=== PATIENT | male | born 1990 | race American Indian/Alaskan Native ===

== ENCOUNTER 2016-09-03 05:09 | Emergency (ER) | payer SELFPAY ==
[2016-09-03 05:59] VITALS: BP 151/96
--- NOTE | 2016-09-03 07:32 | Emergency Department Report ---
HPI - General Chief Complaint: Upper Respiratory Infection Time Seen by Provider: 09/03/16 07:13 - HPI HPI: Patient here reported that his cough and runny nose for the past 2 weeks that is getting worse over the last 3 days. He said he has a fever yesterday but none today he said he's been taking Loren-[place] which she took yesterday he reports that when he coughs it hurts. Denies any sore throat. Denies any nausea or vomiting. Denies any abdominal or back pain. Denies any shortness of breath or chest pain. ED Past Medical Hx - Past Medical History Previous Medical History?: Yes Hx Hypertension: Yes - Surgical History Past Surgical History?: No - Family History Family history: no significant - Social History Smoking Status: Never Smoker Substance Use Type: Alcohol - Medications Home Medications: Home Medications Medication Instructions Recorded Confirmed Last Taken Type Cyclobenzaprine [Flexeril] 10 mg PO TID PRN #30 tablet 01/13/16 Unknown Rx HYDROcodone/APAP 5-325 [[place] 1 each PO Q6HR PRN #15 tablet 01/13/16 Unknown Rx 5/325] Azithromycin [Zithromax Z-ARIANA] 250 mg PO DAILY #6 tab 09/03/16 Unknown Rx Brompheniramine/Pseudoephed/Dm 10 ml PO QHS PRN #50 ml 09/03/16 Unknown Rx [Bromfed Dm Cough Syrup] Fluticasone [Flonase] 1 spray NS QDAY #1 bottle 09/03/16 Unknown Rx Loratadine [Claritin] 10 mg PO DAILY #10 tablet 09/03/16 Unknown Rx predniSONE [Deltasone] 20 mg PO QDAY #5 tab 09/03/16 Unknown Rx ED Review of Systems ROS: Stated complaint: FLU LIKE SYMPTOMS Other details as noted in HPI Comment: All other systems reviewed and negative Constitutional: chills. denies: weakness ENT: congestion. denies: ear pain, throat pain Respiratory: cough. denies: shortness of breath, SOB with exertion, SOB at rest , stridor, wheezing Cardiovascular: denies: chest pain, palpitations, edema, syncope Gastrointestinal: denies: abdominal pain, nausea, vomiting Musculoskeletal: denies: back pain, arthralgia Skin: denies: rash Neurological: denies: headache Physical Exam - Physical Exam Vital Signs: Vital Signs 09/03/16 05:55 Temperature 98.9 F Pulse Rate 88 Respiratory 20 Rate Blood Pressure 151/96 O2 Sat by Pulse 98 Oximetry General: This is a 26-year-old male well-nourished well-developed in no acute distress Physical Exam: Head: Normocephalic atraumatic Mouth: Moist, no pharyngeal exudate or erythema. Uvula is midline and oral airway is patent. No gingival enlargement or dental tenderness. No facial swelling. No peritonsillar abscesses. Neck: Supple, no C-spine tenderness, no tracheal deviation. Nontender to palpate. no adenopathy Ears: Bilateral TMs congested withoUT erythema .bilateral EAC without any redness swelling or drainage Eyes: Bilateral pupils equal and reactive to light, bilateral EOM intact. Bilateral sclera and conjunctiva without injection. Normal accommodation Nose: Mucosa moist, positive congestion with erythema. Positive clear drainage. maxillary and frontal sinuses tender to palpate. Lungs:Clear to auscultate bilaterally no rhonchi wheezes or rales. Normal work of breathing extremity; No CCE. +2 pulses. No neurovascular compromise Cardiovascular: S1-S2, regular rate rhythm. No murmurs. Skin: clean Dry and intact no rash no lesions Psych: Normal mood and behavior ED Course Vital Signs 09/03/16 05:55 Temperature 98.9 F Pulse Rate 88 Respiratory 20 Rate Blood Pressure 151/96 O2 Sat by Pulse 98 Oximetry - Reevaluation(s) Reevaluation #1: 09/03/16 07:39 Patient stable throughout ED course ED Medical Decision Making - Medical Decision Making ED course: I discussed the patient that he has sinus infection and treatment plan. Patient was understanding of diagnosis and treatment plan. Patient discharged home with prescription for Z-Ariana, Flonase, prednisone and Bromfed. Patient in stable condition upon discharge. Critical care attestation.: If time is entered above; I have spent that time in minutes in the direct care of this critically ill patient, excluding procedure time. ED Disposition Clinical Impression: Cough Sinusitis, acute Qualifiers: Sinusitis location: unspecified location Recurrence: not specified as recurrent Qualified Code(s): J01.90 - Acute sinusitis, unspecified Disposition: DISCHARGED TO HOME OR SELFCARE Is pt being admited?: No Does the pt Need Aspirin: No Condition: Stable Instructions: Sinusitis (ED), Acute Cough (ED) Additional Instructions: Please rinse nostrils with saline nasal wash 2x/day Prescriptions: Brompheniramine/Pseudoephed/Dm [Bromfed Dm Cough Syrup] 10 ml PO QHS PRN #50 ml PRN Reason: Cough Azithromycin [Zithromax Z-ARIANA] 250 mg PO DAILY #6 tab Fluticasone [Flonase] 1 spray NS QDAY #1 bottle Loratadine [Claritin] 10 mg PO DAILY #10 tablet predniSONE [Deltasone] 20 mg PO QDAY #5 tab Referrals: PRIMARY CARE, [Primary Care Provider] - 3-5 Days Forms: Work/School Release Form(ED)
== END 2016-09-03 07:49 | disposition home or self-care (01) ==
LOC: ED 05:09
DX: J01.90 Acute sinusitis, unspecified (principal); R05 Cough; I10 Essential (primary) hypertension
CPT/HCPCS: 99282

== ENCOUNTER 2017-09-21 03:37 | Emergency (ER) | payer SELFPAY ==
[2017-09-21 03:48] VITALS: BP 144/86
== END 2017-09-21 05:20 | disposition left against medical advice (07) ==
LOC: ED 03:37
DX: H92.01 Otalgia, right ear (principal); M79.1 Myalgia; Z53.21 Procedure and treatment not carried out due to patient leaving prior to being seen by health care provider

== ENCOUNTER 2019-07-26 00:30 | Emergency (ER) | payer OTHER ==
[2019-07-26 00:36] VITALS: BP 163/106
--- NOTE | 2019-07-26 02:22 | Emergency Department Report ---
- General Chief Complaint: Upper Respiratory Infection Stated Complaint: FLU,FEVER,SWEATY Time Seen by Provider: 07/26/19 01:44 Source: patient Mode of arrival: Ambulatory Limitations: No Limitations - History of Present Illness Initial Comments: patient is a 29-year-old male presents emergency room complaints of flulike symptoms that began 2 days ago. He has associated generalized body aches, rhinorrhea, sneezing, dry cough, subjective fever, and had one episode of vomiting. He denies any diarrhea. He does not report any chest pain or shortness of breath. He states that he has had a sick contact at work with flulike symptoms. He has a past medical history of HIV and hypertension. He states that he last took his medication at 4 AM yesterday morning. He denies any allergies medications. - Related Data Previous Rx's Medication Instructions Recorded Last Taken Type Cyclobenzaprine [Flexeril] 10 mg PO TID PRN #30 tablet 01/13/16 Unknown Rx HYDROcodone/APAP 5-325 [[place] 1 each PO Q6HR PRN #15 tablet 01/13/16 Unknown Rx 5/325] Azithromycin [Zithromax Z-ARIANA] 250 mg PO DAILY #6 tab 09/03/16 Unknown Rx Brompheniramine/Pseudoephed/Dm 10 ml PO QHS PRN #50 ml 09/03/16 Unknown Rx [Bromfed Dm Cough Syrup] Fluticasone [Flonase] 1 spray NS QDAY #1 bottle 09/03/16 Unknown Rx Loratadine (Nf) [Claritin] 10 mg PO DAILY #10 tablet 09/03/16 Unknown Rx predniSONE [Deltasone] 20 mg PO QDAY #5 tab 09/03/16 Unknown Rx Oseltamivir [Tamiflu] 75 mg PO BID 5 Days #10 cap 07/26/19 Unknown Rx Allergies Allergy/AdvReac Type Severity Reaction Status Date / Time No Known Allergies Allergy Verified 01/13/16 13:40 ED Review of Systems ROS: Stated complaint: FLU,FEVER,SWEATY Other details as noted in HPI Comment: All other systems reviewed and negative ED Past Medical Hx - Past Medical History Previous Medical History?: Yes Hx Hypertension: Yes Hx HIV: Yes Additional medical history: "renal problems in the past, cleared by a matlab developer" - Surgical History Past Surgical History?: No - Social History Smoking Status: Never Smoker Substance Use Type: Alcohol - Medications Home Medications: Home Medications Medication Instructions Recorded Confirmed Last Taken Type Cyclobenzaprine [Flexeril] 10 mg PO TID PRN #30 tablet 01/13/16 Unknown Rx HYDROcodone/APAP 5-325 [[place] 1 each PO Q6HR PRN #15 tablet 01/13/16 Unknown Rx 5/325] Azithromycin [Zithromax Z-ARIANA] 250 mg PO DAILY #6 tab 09/03/16 Unknown Rx Brompheniramine/Pseudoephed/Dm 10 ml PO QHS PRN #50 ml 09/03/16 Unknown Rx [Bromfed Dm Cough Syrup] Fluticasone [Flonase] 1 spray NS QDAY #1 bottle 09/03/16 Unknown Rx Loratadine (Nf) [Claritin] 10 mg PO DAILY #10 tablet 09/03/16 Unknown Rx predniSONE [Deltasone] 20 mg PO QDAY #5 tab 09/03/16 Unknown Rx Oseltamivir [Tamiflu] 75 mg PO BID 5 Days #10 cap 07/26/19 Unknown Rx ED Physical Exam - General Limitations: No Limitations General appearance: alert, in no apparent distress - Head Head exam: Present: atraumatic, normocephalic - Eye Eye exam: Present: normal appearance - ENT ENT exam: Present: normal orophraynx, mucous membranes moist, TM's normal bilaterally, normal external ear exam - Respiratory Respiratory exam: Present: normal lung sounds bilaterally. Absent: respiratory distress, wheezes, rales, rhonchi, stridor, chest wall tenderness, accessory muscle use, decreased breath sounds, prolonged expiratory - Cardiovascular Cardiovascular Exam: Present: regular rate, normal rhythm, normal heart sounds. Absent: systolic murmur, diastolic murmur, rubs, gallop - Neurological Exam Neurological exam: Present: alert, oriented X3 - Psychiatric Psychiatric exam: Present: normal affect, normal mood - Skin Skin exam: Present: warm, dry, intact ED Course Vital Signs 07/26/19 07/26/19 07/26/19 00:35 00:56 02:30 Temperature 99.1 F 99.1 F Pulse Rate 91 H 96 H 86 Respiratory 18 18 17 Rate Blood Pressure 163/106 163/106 O2 Sat by Pulse 96 96 96 Oximetry ED Medical Decision Making - Medical Decision Making patient is a 29-year-old male presents emergency room complaints of flulike symptoms that began 2 days ago. He has associated generalized body aches, rhinorrhea, sneezing, dry cough, subjective fever, and had one episode of vomiting. He denies any diarrhea. He does not report any chest pain or shortness of breath. He states that he has had a sick contact at work with flulike symptoms. He has a past medical history of HIV and hypertension. He states that he last took his medication at 4 AM yesterday morning. He denies any allergies medications. vitals with elevated blood pressure, otherwise stable, most likely due to being close to time for pt to take his medication. Afebrile, no tachycardia, normal oxygen saturation. Normal oropharynx, normal TMs and canals, normal breath sounds bilaterally without wheezing, rales, rhonchi. Patient has clinical signs and symptoms of influenza and has had a sick contact. Patient is in the 48-hour range for Tamiflu. Patient given prescription for Tamiflu. Discussed the importance of oral rehydration and supportive care with patient. advised pt to please take medication as prescribed. Please increase your fluid intake over the next several days. May alternate Tylenol and ibuprofen as needed for a fever. May take oboa-sis-mqzhzvo cough or cold medication but do not use anything with the letter D or DM behind it due to your high blood pressure. Follow-up with a primary care doctor in the next 2-3 days for reexamination. Please take your blood pressure medication as prescribed by your primary care doctor. Please take your blood pressure 3 times a day and keep a blood pressure log. Please take this log to your primary care physician. Eat a low-sodium diet. Increase your water intake. Return to the emergency room for any new or worsening symptoms. - Differential Diagnosis influenza, PNA, URI, PJP, viral syndrome, otitis, pharyngitis, sinusitis Critical care attestation.: If time is entered above; I have spent that time in minutes in the direct care of this critically ill patient, excluding procedure time. ED Disposition Clinical Impression: Influenza Disposition: DC-01 TO HOME OR SELFCARE Is pt being admited?: No Does the pt Need Aspirin: No Condition: Stable Instructions: Influenza (ED) Additional Instructions: Please take medication as prescribed. Please increase your fluid intake over the next several days. May alternate Tylenol and ibuprofen as needed for a fever. May take kzew-lyp-lcsynwb cough or cold medication but do not use anything with the letter D or DM behind it due to your high blood pressure. Follow-up with a primary care doctor in the next 2-3 days for reexamination. Please take your blood pressure medication as prescribed by your primary care doctor. Please take your blood pressure 3 times a day and keep a blood pressure log. Please take this log to your primary care physician. Eat a low-sodium diet. Increase your water intake. Return to the emergency room for any new or worsening symptoms. Prescriptions: Oseltamivir [Tamiflu] 75 mg PO BID 5 Days #10 cap Referrals: PRIMARY CARE, [Primary Care Provider] - 2-3 Days Forms: Work/School Release Form(ED) Time of Disposition: 02:20 Print Language: SOMALI
== END 2019-07-26 02:30 | disposition home or self-care (01) ==
LOC: ED 00:30
DX: J11.1 Influenza due to unidentified influenza virus with other respiratory manifestations (principal); I10 Essential (primary) hypertension
CPT/HCPCS: 99282

== ENCOUNTER 2021-03-11 06:19 | Emergency (ER) | payer OTHER ==
[2021-03-11] MEDS ORDERED: ACETAMINOPHEN 500 MG TAB PO ONE (06:39)
--- NOTE | 2021-03-11 07:39 | Emergency Department Report ---
ED Lower Extremity HPI - General Chief Complaint: Extremity Injury, Lower Stated Complaint: CALF MUSCLE TORN Time Seen by Provider: 03/11/21 07:15 Source: patient Mode of arrival: Ambulatory Limitations: No Limitations - History of Present Illness Initial Comments: 30-year-old please also Thalia presents emerge department complaining of injury to his right lower leg in the calf region which happens a few times over the last week. States he initially had injured his leg on a call causing some pain and swelling. He continued to work and a couple days later while he was responding to a call he ran out of [place] to get to his vehicle and felt a tearing pain across the same injury area but severely limited his ability for weightbearing and ambulation. Today he has continued pain and swelling and decreased mobility in the right lower extremity and presents for further evaluation and treatment pain is dull and throbbing and again is worse with palpation range of motion and ambulation. 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 and is questioning what his limitations will be MD Complaint: leg injury -: Sudden Injury: Leg: Right Place: home Severity: moderate Improves With: nothing Worsens With: nothing Context: running Associated Symptoms: snap/pop sensation, swelling, able to partially bear weight - Related Data Previous Rx's Medication Instructions Recorded Last Taken Type Cyclobenzaprine [Flexeril] 10 mg PO TID PRN #30 tablet 01/13/16 Unknown Rx HYDROcodone/APAP 5-325 [[place] 1 each PO Q6HR PRN #15 tablet 01/13/16 Unknown Rx 5/325] Azithromycin [Zithromax Z-ARIANA] 250 mg PO DAILY #6 tab 09/03/16 Unknown Rx Brompheniramine/Pseudoephed/Dm 10 ml PO QHS PRN #50 ml 09/03/16 Unknown Rx [Bromfed Dm Cough Syrup] Fluticasone [Flonase] 1 spray NS QDAY #1 bottle 09/03/16 Unknown Rx Loratadine (Nf) [Claritin] 10 mg PO DAILY #10 tablet 09/03/16 Unknown Rx predniSONE [Deltasone] 20 mg PO QDAY #5 tab 09/03/16 Unknown Rx Oseltamivir [Tamiflu] 75 mg PO BID 5 Days #10 cap 07/26/19 Unknown Rx Compress.stocking,Knee,Reg,Lrg 1 each MC DAILY #1 each 03/11/21 Unknown Rx [Relief Knee Open Toe] Ketorolac [Toradol] 10 mg PO Q6H PRN #15 tablet 03/11/21 Unknown Rx methOCARBAMOL [Robaxin TAB] 750 mg PO Q8H PRN #14 tablet 03/11/21 Unknown Rx Allergies Allergy/AdvReac Type Severity Reaction Status Date / Time No Known Allergies Allergy Verified 03/11/21 07:36 ED Review of Systems ROS: Stated complaint: CALF MUSCLE TORN Other details as noted in HPI Comment: All other systems reviewed and negative ED Past Medical Hx - Past Medical History Previous Medical History?: Yes Hx Hypertension: Yes Hx HIV: Yes Additional medical history: "renal problems in the past, cleared by a atmospheric scientist" - Surgical History Past Surgical History?: No - Social History Smoking Status: Never Smoker Substance Use Type: None - Medications Home Medications: Home Medications Medication Instructions Recorded Confirmed Last Taken Type Cyclobenzaprine [Flexeril] 10 mg PO TID PRN #30 tablet 01/13/16 Unknown Rx HYDROcodone/APAP 5-325 [[place] 1 each PO Q6HR PRN #15 tablet 01/13/16 Unknown Rx 5/325] Azithromycin [Zithromax Z-ARIANA] 250 mg PO DAILY #6 tab 09/03/16 Unknown Rx Brompheniramine/Pseudoephed/Dm 10 ml PO QHS PRN #50 ml 09/03/16 Unknown Rx [Bromfed Dm Cough Syrup] Fluticasone [Flonase] 1 spray NS QDAY #1 bottle 09/03/16 Unknown Rx Loratadine (Nf) [Claritin] 10 mg PO DAILY #10 tablet 09/03/16 Unknown Rx predniSONE [Deltasone] 20 mg PO QDAY #5 tab 09/03/16 Unknown Rx Oseltamivir [Tamiflu] 75 mg PO BID 5 Days #10 cap 07/26/19 Unknown Rx Compress.stocking,Knee,Reg,Lrg 1 each MC DAILY #1 each 03/11/21 Unknown Rx [Relief Knee Open Toe] Ketorolac [Toradol] 10 mg PO Q6H PRN #15 tablet 03/11/21 Unknown Rx methOCARBAMOL [Robaxin TAB] 750 mg PO Q8H PRN #14 tablet 03/11/21 Unknown Rx ED Physical Exam - General Limitations: No Limitations General appearance: alert, in no apparent distress - Head Head exam: Present: atraumatic, normocephalic - Eye Eye exam: Present: normal appearance - ENT ENT exam: Present: mucous membranes moist - Neck Neck exam: Present: normal inspection - Respiratory Respiratory exam: Present: normal lung sounds bilaterally. Absent: respiratory distress - Cardiovascular Cardiovascular Exam: Present: regular rate, normal rhythm. Absent: systolic murmur, diastolic murmur, rubs, gallop - GI/Abdominal GI/Abdominal exam: Present: soft, normal bowel sounds - Rectal Rectal exam: Present: deferred - Extremities Exam Extremities exam: Present: normal inspection, tenderness (To the calf region with palpation and swelling is visible.) - Expanded Lower Extremity Exam Right Upper Leg exam: Present: normal inspection, full ROM Knee exam: Present: normal inspection, full ROM Lower Leg exam: Present: tenderness, swelling (In the area of his lower calf. Barrera's test is unresponsive although he can passively show full range of motion of his ankle with plantarflexion and dorsiflexion. He can actively opposed plantar flexion and actively dorsiflex all with discomfort.). Absent: ecchymosis, deformity, palpable cord Ankle exam: Present: full ROM, swelling. Absent: tenderness, laceration, ecchymosis Neuro vascular tendon exam: Absent: pulse deficit, abnormal cap refill, sensory deficit Gait: Positive: observed and limited by pain - Back Exam Back exam: Present: normal inspection. Absent: CVA tenderness (L) - Neurological Exam Neurological exam: Present: alert, oriented X3, CN II-XII intact, abnormal gait (Pain related) - Psychiatric Psychiatric exam: Present: normal affect, normal mood - Skin Skin exam: Present: warm, dry, intact, normal color. Absent: rash ED Course Vital Signs 03/11/21 03/11/21 06:23 07:51 Temperature 98.7 F Pulse Rate 63 57 L Respiratory 17 18 Rate Blood Pressure 148/82 124/77 O2 Sat by Pulse 93 96 Oximetry ED Lower Extremity MDM - Medical Decision Making 30-year-old male status post running type injury to the right calf suggestive of a tear versus a severe strain. Plan is to treat with conservative immobilization with daily exercises minimal weightbearing. To be cleared by orthopedic to return to work. Critical care attestation.: If time is entered above; I have spent that time in minutes in the direct care of this critically ill patient, excluding procedure time. ED Disposition Clinical Impression: Gastrocnemius muscle tear Disposition: HOME / SELF CARE / HOMELESS Is pt being admited?: No Does the pt Need Aspirin: No Condition: Stable Instructions: Muscle Strain, [id number], Medial Head Gastrocnemius Tear, How to Use Cold Therapy, Crutch Use, Adult Prescriptions: Compress.stocking,Knee,Reg,Lrg [Relief Knee Open Toe] 1 each MC DAILY #1 each methOCARBAMOL [Robaxin TAB] 750 mg PO Q8H PRN #14 tablet PRN Reason: Pain, Moderate (4-6) Ketorolac [Toradol] 10 mg PO Q6H PRN #15 tablet PRN Reason: Pain Referrals: DILAN RODRIGUEZ MD [Staff Physician] - 3-5 Days Forms: Work/School Release Form
[2021-03-11 07:53] VITALS: BP 124/77
== END 2021-03-11 08:20 | disposition home or self-care (01) ==
LOC: ED 06:19
DX: S86.111A Strain of other muscle(s) and tendon(s) of posterior muscle group at lower leg level, right leg, initial encounter (principal); I10 Essential (primary) hypertension; B20 Human immunodeficiency virus [HIV] disease; N28.9 Disorder of kidney and ureter, unspecified; X58.XXXA Exposure to other specified factors, initial encounter; Y93.89 Activity, other specified; Y92.89 Other specified places as the place of occurrence of the external cause; Y99.8 Other external cause status
CPT/HCPCS: 99282